=== PATIENT | female | born 1960 | race Asian ===

== ENCOUNTER 2019-10-20 12:21 | Outpatient (CLI) | payer OTHER ==
[~2019-10-20 12:21] MED LIST: ALBU0.63 NEB; AMIT10TA PO; ASCO100019 PO; BECL8.7A7 INH; BELI120V IV; BUDE10.2 INH; CALC1CAP8 PO; CARV-39 PO; CELE200C PO; CHOL5000 PO; CILO100T PO; CIPR250T27 PO; CYAN50008 PO; FAMO40TA4 PO; HYDR200T72 PO; LEVO137T3 PO; METF500T17 PO; MOME13HF INH; MONT10TA11 PO; MULT-717 PO; MYCO500T3 PO; OXYC1TAB7 PO; ROSU20TA2 PO; TRAM50TA2 PO; UBID30CA9 PO; VALS1TAB7 PO; WARF-36 PO; WARF2.5T32 PO
[2019-10-20] MEDS ORDERED: CYAN1TAB29 PO (13:23)
[2019-10-20] MEDS ORDERED: TIOT18CA INH (13:23)
[2019-10-20] MEDS ORDERED: MYCO500T3 PO ×2 (13:23)
[2019-10-20] MEDS ORDERED: UBID1CAP43 PO (13:23)
[2019-10-20] MEDS ORDERED: LEVO112T2 PO (13:23)
[2019-10-20] MEDS ORDERED: CHOL10003 PO (13:23)
[2019-10-20 13:58] LABS: BASOPHILS # (AUTO) 0.02 x10^3/uL (0-0.1); BASOPHILS % (AUTO) 0 % (0-1); EOSINOPHILS # (AUTO) 0.38 x10^3/uL (0-0.4); EOSINOPHILS % (AUTO) 7 % (1-7); LYMPHOCYTES # (AUTO) 1.37 x10^3/uL (1-3.4); LYMPHOCYTES % (AUTO) 24 % (22-44); MD NO; MEAN CORPUSCULAR HEMOGLOBIN 31.3 pg (27.0-34.8); MEAN CORPUSCULAR HGB CONC 32.5 g/dL (32.4-35.8); MEAN CORPUSCULAR VOLUME 96.2 fL (80-100); MEAN PLATELET VOLUME 6.8 fL (7.4-10.4); MONOCYTES % (AUTO) 7 % (2-9); NEUTROPHILS # (AUTO) 3.59 x10^3/uL (1.8-6.8); NEUTROPHILS % (AUTO) 62 % (42-75); PLATELET COUNT 343 x10^3/uL (130-400); RED BLOOD COUNT 4.18 x10^6/uL (3.82-5.3); RED CELL DISTRIBUTION WIDTH 14.9 % (9.6-15.2)
[2019-10-20 14:00] LABS: MICROSCOPIC AUTO
[2019-10-20 14:03] LABS: ALBUMIN 3.8 g/dL (3.4-5.0); ANION GAP 5 mmol/L (5-15); CALCIUM 9.3 mg/dL (8.5-10.1); CHLORIDE 105 mmol/L (98-107)
[2019-10-20 14:11] LABS: ALANINE AMINOTRANSFERASE 32 U/L (12-78); ALKALINE PHOSPHATASE 110 U/L (45-117); BILIRUBIN,TOTAL 0.6 mg/dL (0.2-1.0); CREATININE 0.83 mg/dL (0.55-1.02); TOTAL PROTEIN 7.8 g/dL (6.4-8.2)
== END 2019-10-20 23:59 | disposition home or self-care (01) ==
LOC: STAR 12:21
PROVIDERS: ATTEND Orthopaedic Surgery
DX: Z01.818 Encounter for other preprocedural examination (principal); M17.12 Unilateral primary osteoarthritis, left knee; I44.7 Left bundle-branch block, unspecified
CPT/HCPCS: 36415; 80053; 81001; 85025; 87081; 87086; 87806; 93005; G0475

== ENCOUNTER 2019-10-27 08:56 | Inpatient (IN) | payer OTHER ==
[~2019-10-27] VITALS: Ht 162.6 cm; Wt 83.8 kg
[~2019-10-27 08:56] MED LIST changes: +BACITRACIN 50,000 UNIT ONE; +CHOL10003 PO; +CYAN1TAB29 PO; +EPINEPHRINE 1 MG/ML, 1ML ONE; +KETOROLAC 60 MG/2 ML ONE; +LEVO112T2 PO; +ROPIvacaine/PF 0.2%, 20 ML ONE; +SODIUM CHLORIDE 0.9% 50 ML ONE; +TIOT18CA INH; +TRANEXAMIC ACID 100 MG/ML, 10ML ONE; +UBID1CAP43 PO; +VANCOMYCIN 1,000 MG ONE; +morphine SULFATE/PF 1 MG/ML, 10ML ONE
[2019-10-27] MEDS ORDERED: VANCOMYCIN PMX 1GM/200ML 200 ML IV STA (09:22)
[2019-10-27] MEDS ORDERED: CHLORHEXIDINE 15 ML UDC MM STA (09:26)
[2019-10-27] MEDS ORDERED: LIDOCAINE-MPF 1%, 2ML ONE (09:29)
[2019-10-27] MEDS ORDERED: CHLORHEXIDINE 15 ML UDC ONE (09:29)
[2019-10-27] MEDS: LIDOCAINE-MPF 1%, 2ML INFIL STA ×2 (09:31→09:33)
[2019-10-27] MEDS ORDERED: LACTATED RINGERS 1,000 ML IV ONE (09:31)
[2019-10-27] MEDS ORDERED: PROPOFOL 10 MG/ML, 20ML ONE (09:58)
[2019-10-27] MEDS ORDERED: CEFAZOLIN 1,000 MG ONE (09:58)
[2019-10-27] MEDS ORDERED: LIDOCAINE-MPF 2% ,5ML ONE (09:59)
[2019-10-27] MEDS ORDERED: ROPIvacaine/PF 0.2%, 20 ML ONE (09:59)
[2019-10-27] MEDS ORDERED: FENTANYL PF 250 MCG/5ML ONE (09:59)
[2019-10-27] MEDS ORDERED: OXYcodone IR 5MG TABLET PO STA (10:47)
[2019-10-27] MEDS ORDERED: ACETAMINOPHEN 500 MG TABLET PO STA (10:47)
[2019-10-27] MEDS ORDERED: SUCCINYLCHOLINE 20 MG/ML, 10ML ONE (10:57)
[2019-10-27] MEDS ORDERED: EPHEDRINE 50 MG/ML, 1ML ONE (10:57)
[2019-10-27] MEDS ORDERED: LORazepam 2 MG/ML, 1ML IVPush PRN (11:00)
[2019-10-27] MEDS ORDERED: DIPHENHYDRAMINE 25 MG CAPSULE PO PRN (11:00)
[2019-10-27] MEDS ORDERED: ACETAMINOPHEN 325 MG TABLET PO PRN (11:00)
[2019-10-27] MEDS ORDERED: ZOLPIDEM 5MG TABLET PO PRN (11:00)
[2019-10-27] MEDS ORDERED: morphine SULFATE 10 MG/ML, 1ML IVPush PRN (11:00)
[2019-10-27] MEDS ORDERED: DEXAMETHASONE 4 MG/ML, 1ML ONE ×3 (11:12)
[2019-10-27] MEDS ORDERED: ALBUTEROL SULFATE 2.5 MG/3 ML NPPB PRN (11:30)
[2019-10-27] MEDS ORDERED: FENTANYL PF 100 MCG/2ML IV PRN (11:30)
[2019-10-27] MEDS ORDERED: ONDANSETRON 2MG/ML, 2ML IVPush PRN (11:30)
[2019-10-27] MEDS ORDERED: OXYcodone 5 MG/5 ML ORAL.SOL UDC PO PRN (11:30)
[2019-10-27] MEDS ORDERED: ONDANSETRON 2MG/ML, 2ML ONE (12:42)
[2019-10-27] MEDS ORDERED: ALBUTEROL HFA 90 MCG/SPRAY ONE (12:43)
[2019-10-27] MEDS ORDERED: INSULIN SINGLE DOSE, ER ONE (13:21)
[2019-10-27] MEDS ORDERED: INSULIN REGULAR 100 UNITS/ML, 3ML VIAL SQ-INSULIN ONE (13:30)
[2019-10-27] MEDS ORDERED: FENTANYL PF 100 MCG/2ML ONE (13:35)
[2019-10-27] MEDS ORDERED: TRANEXAMIC ACID 1,000 MG in SODIUM CHLORIDE 0.9% 100 ML IV ONE ×2 (14:25→16:20)
[2019-10-27 14:30] VITALS: BP 139/77
[2019-10-27] MEDS ORDERED: VANCOMYCIN PMX 1GM/200ML 200 ML IVPB ONE (15:00)
[2019-10-27] MEDS ORDERED: ALBUTEROL/IPRATROPIUM 2.5MG/0.5MG, 3 ML NPPB PRN (15:00)
[2019-10-27 15:41] LABS: INTERNATIONAL NORMALIZED RATIO 1.03 (0.93-1.1); PROTHROMBIN TIME 10.9 Seconds (9.6-11.5)
[2019-10-27] MEDS: D5%-0.45% NACL 1,000 ML IV SCH ×3 (15:43→20:46)
[2019-10-27] MEDS: OXYcodone/APAP 7.5/325MG TABLET PO PRN (16:08)
[2019-10-27 17:00] VITALS: BP 146/74
[2019-10-27] MEDS: metFORMIN 500 MG TABLET PO SCH (17:12)
[2019-10-27] MEDS: CARVEDILOL 25 MG TABLET PO SCH (17:56)
[2019-10-27] MEDS ORDERED: WARFARIN 5 MG TABLET PO-COUM SCH (18:00)
[2019-10-27] MEDS: CEFAZOLIN PMX 2GM/50ML 50 ML IVPB SCH (18:42)
[2019-10-27] MEDS: ONDANSETRON 2MG/ML, 2ML IVPush PRN (19:45)
[2019-10-27] MEDS: BUDESONIDE 0.5 MG/2 ML INHA NPPB SCH (20:27)
[2019-10-27] MEDS: ALBUTEROL/IPRATROPIUM 2.5MG/0.5MG, 3 ML NPPB SCH ×2 (20:27→21:00)
[2019-10-27 21:03] VITALS: BP 125/65
[2019-10-27] MEDS: FAMOTIDINE 20 MG TABLET PO SCH (22:03)
[2019-10-27] MEDS: CILOSTAZOL 100 MG TABLET PO SCH (22:03)
[2019-10-27] MEDS: MONTELUKAST 10 MG TABLET PO SCH (22:03)
[2019-10-27] MEDS: AMITRIPTYLINE 10 MG TABLET PO SCH (22:04)
[2019-10-27] MEDS: HYDROXYCHLOROQUINE 200 MG TABLET PO SCH (22:04)
[2019-10-27] MEDS: ATORVASTATIN 80 MG TABLET PO SCH (22:05)
[2019-10-28 00:03] VITALS: BP 116/72
[2019-10-28] MEDS: SODIUM CHLORIDE 0.45% 1,000 ML IV SCH ×4 (00:11→20:07)
[2019-10-28] MEDS: ALBUTEROL/IPRATROPIUM 2.5MG/0.5MG, 3 ML NPPB SCH ×6 (03:00→23:04)
[2019-10-28] MEDS: CEFAZOLIN PMX 2GM/50ML 50 ML IVPB SCH ×2 (03:10→11:38)
[2019-10-28] MEDS: ONDANSETRON 2MG/ML, 2ML IVPush PRN (03:14)
[2019-10-28 05:24] LABS: INTERNATIONAL NORMALIZED RATIO 1.04 (0.93-1.1)
[2019-10-28] MEDS: LEVOTHYROXINE 112 MCG TABLET PO SCH (05:56)
[2019-10-28] MEDS: CARVEDILOL 25 MG TABLET PO SCH ×2 (05:56→17:25)
[2019-10-28 07:05] VITALS: BP 101/61
[2019-10-28] MEDS: BUDESONIDE 0.5 MG/2 ML INHA NPPB SCH ×2 (07:30→18:48)
[2019-10-28] MEDS: MULTIVITAMINS/MINERALS TABLET PO SCH (08:45)
[2019-10-28] MEDS: CILOSTAZOL 100 MG TABLET PO SCH ×2 (08:45→22:05)
[2019-10-28] MEDS: CHOLECALCIFEROL 1,000 UNIT TABLET PO SCH (08:45)
[2019-10-28] MEDS: FAMOTIDINE 20 MG TABLET PO SCH ×2 (08:45→20:00)
[2019-10-28] MEDS: CALCIUM/VITAMIN D3 250-125 TABLET PO SCH (08:45)
[2019-10-28] MEDS: ASCORBIC ACID 500 MG TABLET PO SCH (08:46)
[2019-10-28] MEDS: metFORMIN 500 MG TABLET PO SCH ×2 (08:46→17:24)
[2019-10-28] MEDS: HYDROXYCHLOROQUINE 200 MG TABLET PO SCH ×2 (08:46→22:05)
[2019-10-28] MEDS: HYDROCHLOROTHIAZIDE 12.5 MG CAPSULE PO SCH (08:49)
[2019-10-28] MEDS: VALSARTAN 160 MG TABLET PO SCH (08:49)
[2019-10-28] MEDS ORDERED: VANCOMYCIN PMX 1GM/200ML 200 ML IVPB ONE (10:00)
[2019-10-28] MEDS ORDERED: BUDESONIDE 0.5 MG/2 ML INHA INH SCH (12:00)
[2019-10-28] MEDS: GUAIFENESIN ER 600 MG TABLET PO SCH ×2 (12:31→22:04)
[2019-10-28 14:30] VITALS: BP 94/58
[2019-10-28] MEDS: WARFARIN 2.5 MG TABLET PO-COUM SCH (17:24)
[2019-10-28] MEDS: ASPIRIN 325 MG TABLET EC PO SCH (17:25)
[2019-10-28 17:27] VITALS: BP 101/59
[2019-10-28] MEDS: OXYcodone/APAP 7.5/325MG TABLET PO PRN (18:12)
[2019-10-28 19:23] VITALS: BP 99/61
[2019-10-28] MEDS: DOCUSATE 100 MG CAPSULE PO SCH (20:00)
[2019-10-28] MEDS: MONTELUKAST 10 MG TABLET PO SCH (22:05)
[2019-10-28] MEDS: AMITRIPTYLINE 10 MG TABLET PO SCH (22:05)
[2019-10-28] MEDS: ATORVASTATIN 80 MG TABLET PO SCH (22:05)
[2019-10-29 01:28] VITALS: BP 111/72
[2019-10-29] MEDS: ALBUTEROL/IPRATROPIUM 2.5MG/0.5MG, 3 ML NPPB SCH ×5 (02:15→20:25)
[2019-10-29] MEDS: OXYcodone/APAP 7.5/325MG TABLET PO PRN ×2 (02:43→21:30)
[2019-10-29] MEDS: SODIUM CHLORIDE 0.45% 1,000 ML IV SCH ×3 (04:57→13:22)
[2019-10-29] MEDS: LEVOTHYROXINE 112 MCG TABLET PO SCH (05:52)
[2019-10-29] MEDS: CARVEDILOL 25 MG TABLET PO SCH ×2 (05:52→17:25)
[2019-10-29 05:54] LABS: INTERNATIONAL NORMALIZED RATIO 1.39 (0.93-1.1); PROTHROMBIN TIME 14.8 Seconds (9.6-11.5)
[2019-10-29] MEDS: BUDESONIDE 0.5 MG/2 ML INHA NPPB SCH ×2 (06:40→20:25)
[2019-10-29 07:52] VITALS: BP 107/64
[2019-10-29] MEDS: DOCUSATE 100 MG CAPSULE PO SCH ×2 (08:13→20:05)
[2019-10-29] MEDS: FAMOTIDINE 20 MG TABLET PO SCH ×2 (08:13→20:08)
[2019-10-29] MEDS: CILOSTAZOL 100 MG TABLET PO SCH ×2 (08:13→20:10)
[2019-10-29] MEDS: metFORMIN 500 MG TABLET PO SCH ×2 (08:13→16:45)
[2019-10-29] MEDS: CHOLECALCIFEROL 1,000 UNIT TABLET PO SCH (08:14)
[2019-10-29] MEDS: HYDROCHLOROTHIAZIDE 12.5 MG CAPSULE PO SCH (08:14)
[2019-10-29] MEDS: CALCIUM/VITAMIN D3 250-125 TABLET PO SCH (08:14)
[2019-10-29] MEDS: HYDROXYCHLOROQUINE 200 MG TABLET PO SCH ×2 (08:14→20:12)
[2019-10-29] MEDS: VALSARTAN 160 MG TABLET PO SCH (08:14)
[2019-10-29] MEDS: MULTIVITAMINS/MINERALS TABLET PO SCH (08:14)
[2019-10-29] MEDS: ASCORBIC ACID 500 MG TABLET PO SCH (08:14)
[2019-10-29] MEDS: GUAIFENESIN ER 600 MG TABLET PO SCH ×2 (08:15→20:10)
[2019-10-29] MEDS: ASPIRIN 325 MG TABLET EC PO SCH ×2 (08:15→16:45)
[2019-10-29 09:35] LABS: ANION GAP 4 mmol/L (5-15); CALCIUM 8.1 mg/dL (8.5-10.1); CHLORIDE 107 mmol/L (98-107); CREATININE 0.68 mg/dL (0.55-1.02)
[2019-10-29 12:14] VITALS: BP 147/74
[2019-10-29] MEDS ORDERED: OMNIPAQUE 350 MG/ML, 100ML BOTTLE ONE (15:58)
[2019-10-29] MEDS: WARFARIN 2.5 MG TABLET PO-COUM SCH (17:26)
[2019-10-29 19:53] VITALS: BP 133/73
[2019-10-29] MEDS: ATORVASTATIN 80 MG TABLET PO SCH (20:08)
[2019-10-29] MEDS: AMITRIPTYLINE 10 MG TABLET PO SCH (20:08)
[2019-10-29] MEDS: MONTELUKAST 10 MG TABLET PO SCH (20:13)
[2019-10-29] MEDS: FLUTICASONE NASAL SPRAY 16GM NAS SCH (21:00)
[2019-10-29] MEDS: SODIUM CHLORIDE NASAL SPRAY 45ML BOTTLE NAS SCH (21:21)
[2019-10-29] MEDS ORDERED: AZITHROMYCIN 500 MG in SODIUM CHLORIDE 0.9% 250 ML IV SCH (22:00)
[2019-10-29] MEDS: CEFTRIAXONE PMX 1GM/50ML 50 ML IV SCH (23:22)
[2019-10-30] VITALS (7 sets, daily range): BP systolic 106–146; BP diastolic 65–96
[2019-10-30] MEDS: ALBUTEROL/IPRATROPIUM 2.5MG/0.5MG, 3 ML NPPB SCH ×7 (00:12→22:27)
[2019-10-30 05:07] LABS: INTERNATIONAL NORMALIZED RATIO 1.56 (0.93-1.1); PROTHROMBIN TIME 16.6 Seconds (9.6-11.5)
[2019-10-30] MEDS: CARVEDILOL 25 MG TABLET PO SCH ×2 (06:00→18:16)
[2019-10-30] MEDS: OXYcodone/APAP 7.5/325MG TABLET PO PRN (06:00)
[2019-10-30] MEDS: LEVOTHYROXINE 112 MCG TABLET PO SCH (06:00)
[2019-10-30] MEDS: BUDESONIDE 0.5 MG/2 ML INHA NPPB SCH ×2 (07:25→22:27)
[2019-10-30] MEDS: metFORMIN 500 MG TABLET PO SCH ×2 (08:54→16:48)
[2019-10-30] MEDS: CALCIUM/VITAMIN D3 250-125 TABLET PO SCH (08:54)
[2019-10-30] MEDS: FAMOTIDINE 20 MG TABLET PO SCH ×2 (08:54→21:24)
[2019-10-30] MEDS: ASCORBIC ACID 500 MG TABLET PO SCH (08:54)
[2019-10-30] MEDS: CILOSTAZOL 100 MG TABLET PO SCH ×2 (08:54→21:23)
[2019-10-30] MEDS: CETIRIZINE 10 MG TABLET PO SCH (08:55)
[2019-10-30] MEDS: CHOLECALCIFEROL 1,000 UNIT TABLET PO SCH (08:55)
[2019-10-30] MEDS: ASPIRIN 325 MG TABLET EC PO SCH ×2 (08:55→16:48)
[2019-10-30] MEDS: VALSARTAN 160 MG TABLET PO SCH (08:55)
[2019-10-30] MEDS: MULTIVITAMINS/MINERALS TABLET PO SCH (08:55)
[2019-10-30] MEDS: HYDROCHLOROTHIAZIDE 12.5 MG CAPSULE PO SCH (08:56)
[2019-10-30] MEDS: DOCUSATE 100 MG CAPSULE PO SCH ×2 (08:56→21:26)
[2019-10-30] MEDS: GUAIFENESIN ER 600 MG TABLET PO SCH ×2 (08:57→21:23)
[2019-10-30] MEDS: HYDROXYCHLOROQUINE 200 MG TABLET PO SCH ×2 (08:57→22:07)
[2019-10-30] MEDS: FLUTICASONE NASAL SPRAY 16GM NAS SCH ×2 (09:00→21:00)
[2019-10-30] MEDS: SODIUM CHLORIDE NASAL SPRAY 45ML BOTTLE NAS SCH ×2 (09:01→21:27)
[2019-10-30 11:46] LABS: MEAN CORPUSCULAR HEMOGLOBIN 31.5 pg (27.0-34.8); MEAN CORPUSCULAR HGB CONC 32.5 g/dL (32.4-35.8); MEAN CORPUSCULAR VOLUME 97.1 fL (80-100); MEAN PLATELET VOLUME 7.2 fL (7.4-10.4); PLATELET COUNT 307 x10^3/uL (130-400); RED BLOOD COUNT 2.81 x10^6/uL (3.82-5.3)
[2019-10-30] MEDS: methylPREDNISolone SOD SUCC 125 MG/2 ML IVPush SCH ×2 (11:50→21:26)
[2019-10-30 12:31] LABS: BASOPHILS % (AUTO) 0 % (0-1); EOSINOPHILS # (AUTO) 0.16 x10^3/uL (0-0.4); EOSINOPHILS % (AUTO) 2 % (1-7); LYMPHOCYTES # (AUTO) 1.04 x10^3/uL (1-3.4); LYMPHOCYTES % (AUTO) 11 % (22-44); MD SCAN; MONOCYTES # (AUTO) 0.66 x10^3/uL (0.2-0.8); MONOCYTES % (AUTO) 7 % (2-9); NEUTROPHILS # (AUTO) 7.64 x10^3/uL (1.8-6.8); NEUTROPHILS % (AUTO) 80 % (42-75)
[2019-10-30 15:46] LABS: D-DIMER (DIC) 0.46 ug/mlFEU (0.00-0.52); PROTIME 14.9 Seconds (9.6-11.5)
[2019-10-30] MEDS ORDERED: WARFARIN 2 MG TABLET PO-COUM ONE (18:00)
[2019-10-30] MEDS: AMITRIPTYLINE 10 MG TABLET PO SCH (21:25)
[2019-10-30] MEDS: DOXYCYCLINE 100MG TABLET PO SCH (21:25)
[2019-10-30] MEDS: ATORVASTATIN 80 MG TABLET PO SCH (21:25)
[2019-10-30] MEDS: MONTELUKAST 10 MG TABLET PO SCH (21:26)
[2019-10-30] MEDS: CEFTRIAXONE PMX 1GM/50ML 50 ML IV SCH (23:03)
[2019-10-31 02:12] VITALS: BP 123/79
[2019-10-31] MEDS: ALBUTEROL/IPRATROPIUM 2.5MG/0.5MG, 3 ML NPPB SCH (03:00)
[2019-10-31 04:49] LABS: INTERNATIONAL NORMALIZED RATIO 1.56 (0.93-1.1); PROTHROMBIN TIME 16.6 Seconds (9.6-11.5)
[2019-10-31] MEDS: LEVOTHYROXINE 112 MCG TABLET PO SCH (05:07)
[2019-10-31] MEDS: methylPREDNISolone SOD SUCC 125 MG/2 ML IVPush SCH (05:07)
[2019-10-31] MEDS: CARVEDILOL 25 MG TABLET PO SCH ×2 (05:07→18:00)
[2019-10-31 08:12] VITALS: BP 118/68
[2019-10-31] MEDS ORDERED: ACETAMINOPHEN 325 MG TABLET PO PRN (09:00)
[2019-10-31] MEDS: FLUTICASONE NASAL SPRAY 16GM NAS SCH ×2 (09:00→20:24)
[2019-10-31] MEDS: FLUTICASONE FUROATE 200MCG/INH INH SCH (09:01)
[2019-10-31] MEDS: FAMOTIDINE 20 MG TABLET PO SCH ×2 (09:01→20:21)
[2019-10-31] MEDS: CETIRIZINE 10 MG TABLET PO SCH (09:02)
[2019-10-31] MEDS: CHOLECALCIFEROL 1,000 UNIT TABLET PO SCH (09:02)
[2019-10-31] MEDS: ASCORBIC ACID 500 MG TABLET PO SCH (09:02)
[2019-10-31] MEDS: HYDROXYCHLOROQUINE 200 MG TABLET PO SCH ×2 (09:02→20:21)
[2019-10-31] MEDS: DOXYCYCLINE 100MG TABLET PO SCH ×2 (09:02→20:20)
[2019-10-31] MEDS: metFORMIN 500 MG TABLET PO SCH ×2 (09:02→16:30)
[2019-10-31] MEDS: MULTIVITAMINS/MINERALS TABLET PO SCH (09:03)
[2019-10-31] MEDS: DOCUSATE 100 MG CAPSULE PO SCH ×2 (09:03→20:22)
[2019-10-31] MEDS: ASPIRIN 325 MG TABLET EC PO SCH ×2 (09:03→16:30)
[2019-10-31] MEDS: CALCIUM/VITAMIN D3 250-125 TABLET PO SCH (09:04)
[2019-10-31 09:21] LABS: BASOPHILS # (AUTO) 0.02 x10^3/uL (0-0.1); BASOPHILS % (AUTO) 0 % (0-1); EOSINOPHILS % (AUTO) 0 % (1-7); LYMPHOCYTES # (AUTO) 0.55 x10^3/uL (1-3.4); LYMPHOCYTES % (AUTO) 6 % (22-44); MD NO; MEAN CORPUSCULAR HEMOGLOBIN 31.7 pg (27.0-34.8); MEAN CORPUSCULAR HGB CONC 33.3 g/dL (32.4-35.8); MEAN CORPUSCULAR VOLUME 95.3 fL (80-100); MEAN PLATELET VOLUME 7.1 fL (7.4-10.4); MONOCYTES # (AUTO) 0.17 x10^3/uL (0.2-0.8); MONOCYTES % (AUTO) 2 % (2-9); NEUTROPHILS # (AUTO) 8.63 x10^3/uL (1.8-6.8); NEUTROPHILS % (AUTO) 92 % (42-75); PLATELET COUNT 327 x10^3/uL (130-400); RED BLOOD COUNT 2.78 x10^6/uL (3.82-5.3); RED CELL DISTRIBUTION WIDTH 14.8 % (9.6-15.2)
[2019-10-31] MEDS: SODIUM CHLORIDE NASAL SPRAY 45ML BOTTLE NAS SCH ×2 (10:02→20:24)
[2019-10-31] MEDS: VALSARTAN 160 MG TABLET PO SCH (11:10)
[2019-10-31] MEDS: BENZONATATE 100 MG CAPSULE PO SCH ×3 (11:10→20:21)
[2019-10-31] MEDS: CILOSTAZOL 100 MG TABLET PO SCH ×2 (11:10→20:22)
[2019-10-31] MEDS: ALBUTEROL HFA 90 MCG/SPRAY INH SCH ×4 (11:11→23:35)
[2019-10-31] MEDS: SODIUM CHLORIDE 0.9% 1,000 ML IV SCH (11:11)
[2019-10-31] MEDS: INSULIN LISPRO 100 UNITS/ML, PEN SQ-INSULIN SCH ×3 (11:53→20:44)
[2019-10-31 13:07] VITALS: BP 115/67
[2019-10-31] MEDS: OXYcodone/APAP 7.5/325MG TABLET PO PRN (16:47)
[2019-10-31] MEDS ORDERED: WARFARIN 5 MG TABLET PO-COUM ONE (18:00)
[2019-10-31 18:56] VITALS: BP 102/63
[2019-10-31] MEDS: MONTELUKAST 10 MG TABLET PO SCH (20:21)
[2019-10-31] MEDS: ATORVASTATIN 80 MG TABLET PO SCH (20:21)
[2019-10-31] MEDS: AMITRIPTYLINE 10 MG TABLET PO SCH (20:23)
[2019-10-31] MEDS: CEFTRIAXONE PMX 1GM/50ML 50 ML IV SCH (23:23)
[2019-11-01 00:33] VITALS: BP 112/70
[2019-11-01] MEDS: ALBUTEROL HFA 90 MCG/SPRAY INH SCH ×5 (04:40→20:37)
[2019-11-01] MEDS: SODIUM CHLORIDE 0.9% 1,000 ML IV SCH ×2 (04:43→20:38)
[2019-11-01 05:36] LABS: BASOPHILS # (AUTO) 0.03 x10^3/uL (0-0.1); BASOPHILS % (AUTO) 0 % (0-1); EOSINOPHILS # (AUTO) 0.03 x10^3/uL (0-0.4); EOSINOPHILS % (AUTO) 0 % (1-7); LYMPHOCYTES # (AUTO) 1.22 x10^3/uL (1-3.4); LYMPHOCYTES % (AUTO) 12 % (22-44); MD NO; MEAN CORPUSCULAR HEMOGLOBIN 31.1 pg (27.0-34.8); MEAN CORPUSCULAR HGB CONC 32.1 g/dL (32.4-35.8); MEAN CORPUSCULAR VOLUME 96.6 fL (80-100); MEAN PLATELET VOLUME 6.4 fL (7.4-10.4); MONOCYTES # (AUTO) 0.96 x10^3/uL (0.2-0.8); MONOCYTES % (AUTO) 9 % (2-9); NEUTROPHILS # (AUTO) 8.24 x10^3/uL (1.8-6.8); NEUTROPHILS % (AUTO) 79 % (42-75); PLATELET COUNT 379 x10^3/uL (130-400); RED BLOOD COUNT 2.56 x10^6/uL (3.82-5.3); RED CELL DISTRIBUTION WIDTH 15.4 % (9.6-15.2)
[2019-11-01 05:44] LABS: INTERNATIONAL NORMALIZED RATIO 2.39 (0.93-1.1); PROTHROMBIN TIME 25.6 Seconds (9.6-11.5)
[2019-11-01 05:47] LABS: % IRON SATURATION 13 % (20-55); ANION GAP 6 mmol/L (5-15); CALCIUM 8.1 mg/dL (8.5-10.1); CHLORIDE 107 mmol/L (98-107); CREATININE 0.73 mg/dL (0.55-1.02); IRON LEVEL 31 mcg/dL (50-170); TOTAL IRON BINDING CAPACITY 239 mcg/dL (250-450)
[2019-11-01] MEDS: LEVOTHYROXINE 112 MCG TABLET PO SCH (06:20)
[2019-11-01] MEDS: CARVEDILOL 25 MG TABLET PO SCH ×2 (06:20→17:13)
[2019-11-01] MEDS: INSULIN LISPRO 100 UNITS/ML, PEN SQ-INSULIN SCH ×4 (07:00→20:41)
[2019-11-01] MEDS: FLUTICASONE NASAL SPRAY 16GM NAS SCH ×2 (07:35→20:40)
[2019-11-01 07:56] VITALS: BP 143/74
[2019-11-01] MEDS: ASCORBIC ACID 500 MG TABLET PO SCH (08:13)
[2019-11-01] MEDS: FAMOTIDINE 20 MG TABLET PO SCH ×2 (08:13→20:31)
[2019-11-01] MEDS: metFORMIN 500 MG TABLET PO SCH ×2 (08:13→16:36)
[2019-11-01] MEDS: VALSARTAN 160 MG TABLET PO SCH (08:14)
[2019-11-01] MEDS: HYDROXYCHLOROQUINE 200 MG TABLET PO SCH ×2 (08:14→20:33)
[2019-11-01] MEDS: MULTIVITAMINS/MINERALS TABLET PO SCH (08:14)
[2019-11-01] MEDS: CETIRIZINE 10 MG TABLET PO SCH (08:14)
[2019-11-01] MEDS: CALCIUM/VITAMIN D3 250-125 TABLET PO SCH (08:14)
[2019-11-01] MEDS: CILOSTAZOL 100 MG TABLET PO SCH ×2 (08:14→20:34)
[2019-11-01] MEDS: CHOLECALCIFEROL 1,000 UNIT TABLET PO SCH (08:15)
[2019-11-01] MEDS: DOCUSATE 100 MG CAPSULE PO SCH ×2 (08:15→20:36)
[2019-11-01] MEDS: BENZONATATE 100 MG CAPSULE PO SCH ×3 (08:15→20:30)
[2019-11-01] MEDS: DOXYCYCLINE 100MG TABLET PO SCH ×2 (08:15→20:35)
[2019-11-01] MEDS: FLUTICASONE FUROATE 200MCG/INH INH SCH (08:21)
[2019-11-01] MEDS ORDERED: FERROUS SULFATE 325 MG TABLET PO SCH (08:30)
[2019-11-01] MEDS: SODIUM CHLORIDE NASAL SPRAY 45ML BOTTLE NAS SCH ×2 (09:36→21:00)
[2019-11-01] MEDS: LACTOBACILLUS CHEW TABLET PO SCH ×3 (09:45→20:31)
[2019-11-01] MEDS: ACETAMINOPHEN 325 MG TABLET PO SCH ×3 (09:45→20:34)
[2019-11-01 11:17] LABS: OCCULT BLOOD NEGATIVE (NEGATIVE)
[2019-11-01 12:59] VITALS: BP 119/71
[2019-11-01] MEDS ORDERED: ACETAMINOPHEN 650 MG/20.3 ML UDC ONE (15:41)
[2019-11-01] MEDS: OXYcodone/APAP 7.5/325MG TABLET PO PRN (15:48)
[2019-11-01] MEDS ORDERED: WARFARIN 2.5 MG TABLET PO-COUM ONE (18:00)
[2019-11-01 18:58] VITALS: BP 137/74
[2019-11-01] MEDS: MONTELUKAST 10 MG TABLET PO SCH (20:30)
[2019-11-01] MEDS: AMITRIPTYLINE 10 MG TABLET PO SCH (20:33)
[2019-11-01] MEDS: ATORVASTATIN 80 MG TABLET PO SCH (20:35)
[2019-11-02] MEDS: CEFTRIAXONE PMX 1GM/50ML 50 ML IV SCH (00:09)
[2019-11-02] MEDS: ALBUTEROL HFA 90 MCG/SPRAY INH SCH ×4 (00:12→11:21)
[2019-11-02 00:14] VITALS: BP 110/65
[2019-11-02] MEDS: ACETAMINOPHEN 325 MG TABLET PO SCH ×2 (03:42→09:28)
[2019-11-02 05:29] LABS: BASOPHILS # (AUTO) 0.02 x10^3/uL (0-0.1); BASOPHILS % (AUTO) 0 % (0-1); EOSINOPHILS # (AUTO) 0.24 x10^3/uL (0-0.4); EOSINOPHILS % (AUTO) 4 % (1-7); LYMPHOCYTES # (AUTO) 1.07 x10^3/uL (1-3.4); LYMPHOCYTES % (AUTO) 18 % (22-44); MD NO; MEAN CORPUSCULAR HGB CONC 32.1 g/dL (32.4-35.8); MEAN CORPUSCULAR VOLUME 96.6 fL (80-100); MEAN PLATELET VOLUME 6.8 fL (7.4-10.4); MONOCYTES # (AUTO) 0.77 x10^3/uL (0.2-0.8); MONOCYTES % (AUTO) 13 % (2-9); NEUTROPHILS # (AUTO) 4.04 x10^3/uL (1.8-6.8); NEUTROPHILS % (AUTO) 66 % (42-75); PLATELET COUNT 381 x10^3/uL (130-400); RED BLOOD COUNT 2.64 x10^6/uL (3.82-5.3); RED CELL DISTRIBUTION WIDTH 15.4 % (9.6-15.2)
[2019-11-02 05:31] LABS: INTERNATIONAL NORMALIZED RATIO 3.31 (0.93-1.1); PROTHROMBIN TIME 35.5 Seconds (9.6-11.5)
[2019-11-02 05:47] VITALS: BP 146/76
[2019-11-02] MEDS: CARVEDILOL 25 MG TABLET PO SCH (06:00)
[2019-11-02] MEDS: LEVOTHYROXINE 112 MCG TABLET PO SCH (06:00)
[2019-11-02] MEDS: INSULIN LISPRO 100 UNITS/ML, PEN SQ-INSULIN SCH ×2 (07:00→11:00)
[2019-11-02] MEDS ORDERED: HOLD COUMADIN MC PRN (07:30)
[2019-11-02 08:00] VITALS: BP 133/67
[2019-11-02] MEDS: DOCUSATE 100 MG CAPSULE PO SCH (09:00)
[2019-11-02] MEDS: DOXYCYCLINE 100MG TABLET PO SCH (09:26)
[2019-11-02] MEDS: metFORMIN 500 MG TABLET PO SCH (09:26)
[2019-11-02] MEDS: FLUTICASONE FUROATE 200MCG/INH INH SCH (09:26)
[2019-11-02] MEDS: FLUTICASONE NASAL SPRAY 16GM NAS SCH (09:26)
[2019-11-02] MEDS: SODIUM CHLORIDE NASAL SPRAY 45ML BOTTLE NAS SCH (09:26)
[2019-11-02] MEDS: VALSARTAN 160 MG TABLET PO SCH (09:27)
[2019-11-02] MEDS: CILOSTAZOL 100 MG TABLET PO SCH (09:27)
[2019-11-02] MEDS: CALCIUM/VITAMIN D3 250-125 TABLET PO SCH (09:28)
[2019-11-02] MEDS: MULTIVITAMINS/MINERALS TABLET PO SCH (09:28)
[2019-11-02] MEDS: BENZONATATE 100 MG CAPSULE PO SCH (09:28)
[2019-11-02] MEDS: HYDROXYCHLOROQUINE 200 MG TABLET PO SCH (09:28)
[2019-11-02] MEDS: LACTOBACILLUS CHEW TABLET PO SCH (09:28)
[2019-11-02] MEDS: FAMOTIDINE 20 MG TABLET PO SCH (09:28)
[2019-11-02] MEDS: CETIRIZINE 10 MG TABLET PO SCH (09:30)
[2019-11-02] MEDS: CHOLECALCIFEROL 1,000 UNIT TABLET PO SCH (09:30)
[2019-11-02] MEDS: ASCORBIC ACID 500 MG TABLET PO SCH (09:30)
[2019-11-02] MEDS ORDERED: ACET325T26 PO (10:22)
[2019-11-02] MEDS ORDERED: FERR-51 PO (10:22)
[2019-11-02] MEDS ORDERED: ACID1TAB7 PO (10:22)
[2019-11-02] MEDS: SODIUM CHLORIDE 0.9% 1,000 ML IV SCH (12:20)
== END 2019-11-02 13:13 | disposition home or self-care (01) | DRG 469 ==
LOC: OUT 08:56 → ORIP 13:29 → OBSVTOIN 13:29 → 4NE 14:24 → 4NW 10-31 07:00
PROVIDERS: ADMIT Orthopaedic Surgery; ATTEND Internal Medicine
PROC: 0SRD0J9 Replacement of Left Knee Joint with Synthetic Substitute, Cemented, Open Approach (ICD-10-PCS; principal; 2019-10-27 12:30)
DX: M17.12 Unilateral primary osteoarthritis, left knee (principal); J18.9 Pneumonia, unspecified organism; J96.00 Acute respiratory failure, unspecified whether with hypoxia or hypercapnia; I42.8 Other cardiomyopathies; J45.901 Unspecified asthma with (acute) exacerbation; D84.9 Immunodeficiency, unspecified; D50.9 Iron deficiency anemia, unspecified; E11.65 Type 2 diabetes mellitus with hyperglycemia; E66.01 Morbid (severe) obesity due to excess calories; G47.33 Obstructive sleep apnea (adult) (pediatric); I10 Essential (primary) hypertension; Z79.01 Long term (current) use of anticoagulants; Z86.718 Personal history of other venous thrombosis and embolism; Z68.31 Body mass index [BMI] 31.0-31.9, adult; Z79.52 Long term (current) use of systemic steroids; M32.9 Systemic lupus erythematosus, unspecified; Z88.0 Allergy status to penicillin; Z88.8 Allergy status to other drugs, medicaments and biological substances; Z03.818 Encounter for observation for suspected exposure to other biological agents ruled out; Z79.84 Long term (current) use of oral hypoglycemic drugs
CPT/HCPCS: 36415; 73560; 84145; J3490; J7626; 71045; 71275; 80048; 82272; 82728; 82962; 83036; 83540; 83550; 83605; 83615; 85025; 85049; 85379; 85384; 85610; 85730; 86140; 87040; 87070; 87205; 93005; 94640; 94660; C1713; G0378; J0171; J0456; J0690; J0696; J1100; J1885; J2274; J2405; J2704; J2795; J3010; J3370; Q9967; C1776; J0330; J1815; J2930; J7030; J7050; J7120; J7512; J7517; U0001-CS